=== PATIENT | male | born 1995 | race Caucasian/White ===

== ENCOUNTER 2021-01-12 09:09 | Emergency (ER) | payer BC, OTHER ==
[~2021-01-12] VITALS: Ht 182 cm; Wt 100.0 kg
[2021-01-12] MEDS ORDERED: TETANUS,DIPTH,PERTUSS P/F (BOOSTRIX) 0.5 ML VIAL IM ONE (09:30)
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
[2021-01-12 11:22] VITALS: BP 122/81
[2021-01-15] MEDS ORDERED: ACHD5005 PO (11:22)
== END 2021-01-12 11:22 | disposition home or self-care (01) ==
LOC: ER 09:14
DX: S92.412A Displaced fracture of proximal phalanx of left great toe, initial encounter for closed fracture (principal); S81.011A Laceration without foreign body, right knee, initial encounter; Z23 Encounter for immunization; V29.9XXA Motorcycle rider (driver) (passenger) injured in unspecified traffic accident, initial encounter
CPT/HCPCS: 73610; 73630; 90715